=== PATIENT | female | born 1980 | race Two or more races ===

== ENCOUNTER 2017-03-16 09:09 | Outpatient (CLI) | payer OTHER ==
--- NOTE | 2017-03-16 09:42 | Non Stress Test Report ---
Non Stress Test Datetime Report Generated by CPN: 03/16/2017 09:42 INDICATION Indication for Study: Ordered by Provider MONITORING Monitor Explained: Monitor Explained; Test Explained; Patient Verbalized Understanding Time on Monitor: 03/16/2017 09:21 Time off Monitor: 03/16/2017 09:41 NST Duration: 20 NST INTERVENTIONS NST Interventions: None Physician Notified NST: Dr. Sexton BABY A: [id number] BABY A Movement : Present Contraction Frequency : none FHR Baseline : 140 Accelerations : 15X15 Decelerations : None Variability : Moderate 6-25bpm NST Review: Meets Criteria for Reactive NST NST Review and Verified By : Dilcia Rivera RN NST Results: Reactive NST REPORT Report Trigger: Send Report
== END 2017-03-16 09:45 | disposition home or self-care (01) ==
LOC: LC 09:09
PROVIDERS: ATTEND Student in an Organized Health Care Education/Training Program
PROC: 4A1HXCZ Monitoring of Products of Conception, Cardiac Rate, External Approach (ICD-10-PCS; principal; 2017-03-16)
DX: O09.523 Supervision of elderly multigravida, third trimester (principal); Z3A.37 37 weeks gestation of pregnancy
CPT/HCPCS: 59025

== ENCOUNTER 2017-03-27 09:56 | Outpatient (CLI) | payer OTHER ==
[2017-03-27 10:42] LABS: AMNISURE (ROM) NEGATIVE (NEGATIVE)
--- NOTE | 2017-03-27 11:05 | Non Stress Test Report ---
Non Stress Test Datetime Report Generated by CPN: 03/27/2017 11:05 DEMOGRAPHIC Test Number: 1 EGA NST: 39.0 EGA NST: 37.3 INDICATION Indication for Study: Ordered by Provider MONITORING Monitor Explained: Monitor Explained; Test Explained; Patient Verbalized Understanding Time on Monitor: 03/27/2017 10:10 Time off Monitor: 03/27/2017 10:57 NST Duration: 47 NST INTERVENTIONS NST Interventions: PO Hydration NST Interventions Other: popsicle Physician Notified NST: Ayala, CNM BABY A: [id number] BABY A Movement : Present Contraction Frequency : Irregular FHR Baseline : 140 Accelerations : 15X15 Decelerations : None Variability : Moderate 6-25bpm NST Review: Meets Criteria for Reactive NST NST Review and Verified By : MARCEL Anderson Results: Reactive NST REPORT Report Trigger: Send Report
== END 2017-03-27 11:00 | disposition home or self-care (01) ==
LOC: LC 09:56
PROVIDERS: ATTEND Obstetrics & Gynecology
PROC: 4A1HXCZ Monitoring of Products of Conception, Cardiac Rate, External Approach (ICD-10-PCS; principal; 2017-03-27)
DX: O47.1 False labor at or after 37 completed weeks of gestation (principal); O09.523 Supervision of elderly multigravida, third trimester; Z3A.39 39 weeks gestation of pregnancy
CPT/HCPCS: 59025; 84112

== ENCOUNTER 2017-03-27 19:32 | Inpatient (IN) | payer OTHER ==
[2017-03-27 20:02] LABS: AMNISURE (ROM) POSITIVE (NEGATIVE)
[2017-03-27 20:04] LABS: APPEARANCE,URINE SLIGHTLY-CLOUDY; BILIRUBIN,URINE NEGATIVE (NEGATIVE); GLUCOSE, URINE NEGATIVE (NEGATIVE); KETONES,URINE 20 mg/dL (NEGATIVE); LEUKOCYTE ESTERASE,URINE NEGATIVE (NEGATIVE); NITRITE,URINE NEGATIVE (NEGATIVE); PROTEIN,URINE NEGATIVE (NEGATIVE); UROBILINOGEN,URINE NEGATIVE mg/dL (<2.0)
[2017-03-27 20:21] LABS: URINE BARBITURATES SCREEN NEGATIVE; URINE METHADONE SCREEN NEGATIVE; URINE OPIATES LOW NEGATIVE; URINE PHENCYCLIDINE SCREEN NEGATIVE
[2017-03-27 20:44] LABS: ABSOLUTE LYMPHOCYTES (AUTO) 1.2 10^3/uL (0.5-4.7); ABSOLUTE MONOCYTES (AUTO) 0.5 10^3/uL (0.1-1.4); BASOPHILS % (AUTO) 0.3 % (0-2); EOSINOPHILS % (AUTO) 0.3 % (0-6); HEMATOCRIT 42.4 % (36.0-47.0); HEMOGLOBIN 14.3 g/dL (12.0-15.5); HGB HCT DIFFERENCE 0.5; LYMPHOCYTES % (AUTO) 15.4 % (13-45); MEAN CORPUSCULAR HEMOGLOBIN 28.8 pg (27.0-33.4); MEAN CORPUSCULAR HGB CONC 33.6 g/dL (32.0-36.0); MEAN CORPUSCULAR VOLUME 86 fl (80-97); RED BLOOD COUNT 4.95 10^6/uL (3.72-5.28); RED CELL DISTRIBUTION WIDTH 17.7 % (11.5-14.0); WHITE BLOOD COUNT 7.8 10^3/uL (4.0-10.5)
[2017-03-27] MEDS ORDERED: OXYTOCIN/NORMAL SALINE 20 UNIT/1,000 ML RTUINJ ONE (23:43)
[2017-03-27] MEDS ORDERED: OXYTOCIN/NORMAL SALINE 20 UNIT/1,000 ML RTUINJ IV PRN (23:47)
[2017-03-28] MEDS: RINGERS SOLUTION,LACTATED 1,000 ML IV PRN ×4 (00:14→23:11)
[2017-03-28] MEDS ORDERED: NALBUPHINE HCL INJ 10 MG/1 ML AMPULE INJ ONE (02:24)
[2017-03-28] MEDS ORDERED: PROMETHAZINE HCL INJ 25 MG/1 ML VIAL IV ONE (02:25)
[2017-03-28] MEDS ORDERED: NALBUPHINE HCL INJ 10 MG/1 ML AMPULE ONE (02:30)
[2017-03-28] MEDS ORDERED: PROMETHAZINE HCL INJ 25 MG/1 ML VIAL ONE ×2 (02:30→05:44)
[2017-03-28 05:53] LABS: ABSOLUTE LYMPHOCYTES (AUTO) 1.2 10^3/uL (0.5-4.7); ABSOLUTE MONOCYTES (AUTO) 0.5 10^3/uL (0.1-1.4); ABSOLUTE NEUT (AUTO) 8.9 10^3/uL (1.7-8.2); BASOPHILS % (AUTO) 0.1 % (0-2); EOSINOPHILS % (AUTO) 0.1 % (0-6); HEMATOCRIT 44.1 % (36.0-47.0); HEMOGLOBIN 15.1 g/dL (12.0-15.5); HGB HCT DIFFERENCE 1.2; MEAN CORPUSCULAR HEMOGLOBIN 28.9 pg (27.0-33.4); MEAN CORPUSCULAR HGB CONC 34.1 g/dL (32.0-36.0); MEAN CORPUSCULAR VOLUME 85 fl (80-97); MONOCYTES % (AUTO) 4.7 % (3-13); RED BLOOD COUNT 5.21 10^6/uL (3.72-5.28); RED CELL DISTRIBUTION WIDTH 17.9 % (11.5-14.0); SEGMENTED NEUTROPHILS % (AUTO) 84.1 % (42-78); WHITE BLOOD COUNT 10.6 10^3/uL (4.0-10.5)
[2017-03-28] MEDS ORDERED: MORPHINE SULFATE 10 MG/ML INJ ONE ×2 (05:53→20:08)
[2017-03-28 06:05] LABS: ALANINE AMINOTRANSFERASE 24 U/L (9-52); ALBUMIN 3.6 g/dL (3.5-5.0); ALKALINE PHOSPHATASE 234 U/L (38-126); ANION GAP 9 (5-19); ASPARTATE AMINO TRANSFERASE 20 U/L (14-36); BILIRUBIN,DIRECT 0.3 mg/dL (0.0-0.4); BILIRUBIN,TOTAL 0.4 mg/dL (0.2-1.3); BLOOD UREA NITROGEN 7 mg/dL (7-20); CALCIUM 9.5 mg/dL (8.4-10.2); CARBON DIOXIDE 19 mmol/L (22-30); CHLORIDE 104 mmol/L (98-107); GLUCOSE 96 mg/dL (75-110); LDH 384 U/L (313-618); POTASSIUM 4.3 mmol/L (3.6-5.0); SODIUM 131.9 mmol/L (137-145); TOTAL PROTEIN 6.4 g/dL (6.3-8.2); URIC ACID 5.9 mg/dL (2.5-7.0)
[2017-03-28] MEDS ORDERED: FENTANYL/BUPIVACAINE/NS/PF 200 MCG/100 ML RTUINJ EPI ONE ×2 (08:16→18:17)
[2017-03-28] MEDS ORDERED: MISOPROSTOL 0.2 MG TABLET ONE (08:16)
[2017-03-28] MEDS ORDERED: EPHEDRINE SULFATE INJ 50 MG/1 ML AMPULE ONE (08:16)
[2017-03-28] MEDS ORDERED: BUPIVACAINE HCL 0.25 % INJ/PF (2.5 MG/1 ML) 30 ML VIAL ONE (08:16)
[2017-03-28] MEDS ORDERED: LIDOCAINE 1% INJ-PF (10 MG/ML) 30 ML SDV ONE (08:16)
[2017-03-28] MEDS ORDERED: OXYTOCIN/NORMAL SALINE 0 UNIT/0 ML RTUINJ ONE (08:17)
--- NOTE | 2017-03-28 11:37 | L&D Progress Notes ---
PROGRESS NOTES Datetime Report Generated by CPN: 03/28/2017 11:37 PROGRESS NOTE Procedures: Intrauterine Pressure Catheter; Sterile Vag Exam; Amnio Infusion Plan: Continue Present Management Vital Signs : Reviewed; Within Normal Limits Comment: SVE with IUPC placement for amnioinfusion. Variable decelerations continue w ucs-will try to relieve variables with amnioinfusion. VAGINAL EXAM Dilatation: 2 Dilatation: 1 Effacement: 80 Station: -2 MEMBRANES Pooling: Positive Membranes: Ruptured Membranes: Ruptured FETUS A FHR - Baseline: 160 Decelerations: Variable : 39.0 Presentation: Vertex SIGNATURE SIGNATURE: [id number];[id number] SIGNATURE: [id number] SIGNATURE: [id number] Assignment: Kelly Love MD Signature: with User ID: [email or web address] : with User ID: [email or web address] : I personally evaluated and examined the patient in conjunction with the MLP and agree with the assessment, treatment plan and disposition.
[2017-03-28] MEDS ORDERED: ACETAMINOPHEN 325 MG TABLET PO ONE (13:46)
[2017-03-28] MEDS ORDERED: ACETAMINOPHEN 325 MG TABLET ONE (13:51)
[2017-03-28] MEDS ORDERED: CEFAZOLIN 2 GM/D5W RTU 0 GM/0 ML RTUPB IV ONE (15:25)
[2017-03-28] MEDS ORDERED: CITRIC ACID/SODIUM CITRATE ORAL SOLN 15 ML UDCUP ONE (15:25)
[2017-03-28] MEDS ORDERED: CEFAZOLIN INJ 1 GM VIAL ONE (15:25)
[2017-03-28] MEDS ORDERED: LIDOCAINE 2% INJ-PF (20 MG/ML) 10 ML AMPUL ONE (15:25)
[2017-03-28] MEDS ORDERED: CLINDAMYCIN 900 MG/D5W RTU 50 ML IV ONE (18:53)
[2017-03-28] MEDS ORDERED: GENTAMICIN SULFATE INJ 80 MG/2 ML VIAL ONE (18:53)
[2017-03-28] MEDS ORDERED: GENTAMICIN SULFATE INJ 80 MG/2 ML VIAL IV ONE (18:56)
[2017-03-28] MEDS ORDERED: AMPICILLIN SOD INJ 1 GM VIAL ONE (19:19)
--- NOTE | 2017-03-28 19:59 | L&D Progress Notes ---
PROGRESS NOTES Datetime Report Generated by CPN: 03/28/2017 19:58 PROGRESS NOTE Impression: Arrest of Dilatation/Descent Procedures: Sterile Vag Exam Comment: No dilation since IUPC inserted. FHR tachycardic. Maternal temp again slightly elevated. Will notify Dr Ivan of lack of cervical dilation. FETUS C SIGNATURE: [id number];[id number] Assignment: Kelly Love MD Signature: with User ID: [email or web address] : with User ID: [email or web address] : I personally evaluated and examined the patient in conjunction with the MLP and agree with the assessment, treatment plan and disposition.
[2017-03-28] MEDS ORDERED: OXYTOCIN/NORMAL SALINE 20 UNIT/1,000 ML RTUINJ ONE ×2 (20:07→21:26)
[2017-03-28] MEDS ORDERED: MIDAZOLAM 2 MG/2 ML INJ ONE (20:08)
[2017-03-28] MEDS ORDERED: BUPIVACAINE HCL 0.5 % INJ/PF 30 ML SDV ONE (20:08)
[2017-03-28] MEDS ORDERED: FENTANYL CITRATE INJ/PF 100 MCG/2 ML AMPUL ONE ×2 (20:08→21:41)
[2017-03-28] MEDS ORDERED: OXYTOCIN 10 UNIT/ML VIAL ONE (20:08)
[2017-03-28] MEDS ORDERED: ONDANSETRON HCL INJ/PF 4 MG/2 ML SDV ONE (20:08)
[2017-03-28] MEDS ORDERED: MEPERIDINE HCL/PF INJ 25 MG/1 ML DISP.SYRIN ONE (21:35)
[2017-03-28] MEDS ORDERED: CLINDAMYCIN PHOSPHATE 900 MG in DEXTROSE 5%-WATER 100 ML IV SCH (22:00)
--- NOTE | 2017-03-28 22:32 | OPERATIVE REPORT E ---
Operative Report NAME: BALTA CHIANG : 1980 AGE: 36Y DATE OF SURGERY: 03/28/2017 ROOM: LR200 PREOPERATIVE DIAGNOSES: 1. Intrauterine at 39+ weeks. 2. Failure to progress. 3. Chorioamnionitis. POSTOPERATIVE DIAGNOSES: 1. Intrauterine at 39+ weeks. 2. Failure to progress. 3. Chorioamnionitis. PROCEDURE: Low-transverse hysterotomy section with myomectomy. SURGEON: OLIVE RUGGIERO M.D. ANESTHESIA: Dr. Jones with epidural. FINDINGS: Male infant in cephalic presentation with Apgars of 9 and 9. Small fundal fibroid that sheared with exteriorization of the uterus. COMPLICATIONS: None. ESTIMATED BLOOD LOSS: 600 mL. SPECIMENS REMOVED: Placenta and the pedunculated fibroid.. PROCEDURE IN DETAIL: Patient was taken to the operating room, prepared and draped in a normal sterile fashion in a supine position with a leftward tilt. A transverse skin incision was made with a scalpel and carried through to the underlying layer of fascia. With the same scalpel, the fascia was excised in the midline and extended laterally with Delgado scissors. The fascia was dissected from the rectus muscle bluntly and the rectus muscle was divided. The peritoneal cavity was entered bluntly with good visualization of the bladder and the uterus. The bladder blade was inserted and the hysterotomy was nicked with the scalpel and extended laterally with the surgeon's finger fracture. The was then delivered atraumatically. Nose and mouth were suctioned with a suction bulb, cord was clamped and cut, and the was handed off to awaiting pediatricians. Cord blood was collected. Placenta was removed manually. The uterus was exteriorized and cleared of clots and debris. During the exteriorization of the uterus, the pedunculated fibroid on the left fundus of the uterus did have some shearing forces that caused it to start to shear off and it was bleeding. This was watched during the closure of the hysterotomy, which was closed with 0 Monocryl in a running, locked fashion. A second layer of the same suture was used to imbricate to ensure hemostasis. At this point we reinspected the pedunculated fibroid and found it to still be bleeding at the base. Therefore, the decision with notification of the patient that we would remove the remainder of the fibroid, as it was kind of hanging from a small pedicle at this point. This was done with gentle blunt dissection, peeling the fibroid away from the uterine serosa. The serosa was then made hemostatic with 2 interrupted [id number] sutures of 0 Monocryl. The uterus was then returned to the abdomen and the peritoneal cavity was cleared of clots and debris. The rectus muscle and peritoneum were reapproximated with 2 stitches of 2-0 chromic using a mattress stitch. The fascia was closed with 0 Vicryl. Subcutaneous layer was closed with plain catgut and the skin was closed with 4-0 Vicryl. The patient tolerated the procedure well. Sponge, lap, and needle counts were correct x2. The patient was taken to recovery in stable condition. DICTATING PHYSICIAN: OLIVE RUGGIERO M.D. [id number] PHY#: [id number] ID: [id number] JOB#: [id number] ACCT: [id number] cc:OLIVE RUGGIERO M.D. > MTDD
[2017-03-28] MEDS ORDERED: OXYCODONE-ACETAMINOPHEN 5-325 MG TABLET PO PRN (23:05)
[2017-03-28] MEDS ORDERED: MORPHINE SULFATE 10 MG/ML INJ IV PRN (23:05)
[2017-03-28] MEDS ORDERED: MEASLES,MUMPS&RUBELLA VACC/PF 0.5 ML VIAL SUBCUT PRN (23:05)
[2017-03-28] MEDS ORDERED: SIMETHICONE 80 MG TAB.CHEW PO PRN (23:05)
[2017-03-28] MEDS ORDERED: DIPH/PERTUSS(ACELL)/TETANUS VAC/PF 0.5 ML SYR (>=10YO) IM PRN (23:05)
[2017-03-28] MEDS ORDERED: ACETAMINOPHEN 100 ML IV PRN (23:05)
[2017-03-28] MEDS ORDERED: PROMETHAZINE HCL INJ 25 MG/1 ML VIAL IV PRN (23:05)
[2017-03-28] MEDS ORDERED: RINGERS SOLUTION,LACTATED 1,000 ML IV PRN (23:05)
[2017-03-28] MEDS ORDERED: ACETAMINOPHEN 325 MG TABLET PO PRN (23:05)
[2017-03-28] MEDS ORDERED: OXYTOCIN/NORMAL SALINE 20 UNIT/1,000 ML RTUINJ IV PRN (23:05)
[2017-03-28] MEDS: AMPICILLIN SOD INJ 1 GM VIAL IV SCH (23:17)
--- NOTE | 2017-03-29 00:12 | Delivery Summary ---
Del Sum A-C Datetime Report Generated by CPN: 03/29/2017 00:12 DELIVERY PERSONNEL DELIVERY PERSONNEL: [id number] Delivery Doctor:: Kelly Love MD Anesthesiologist:: Pedro Jones MD GOOD HUMOR VENDOR:: Omar Clay CRNA Labor and Delivery Nurse:: Adenike Jimenez RN Nursery Nurse:: Michelle Thompson RN Nursery Nurse:: Randi Hoyt RN Director Clinical Operations/COAGULANT DIPPER: [facility] Director Clinical Operations/COAGULANT DIPPER: [facility] [place] Additional Personnel: : Sreedhar Lim CNA MATERNAL INFORMATION Delivery Anesthesia: Epidural Medications After Delivery: Pitocin Drip 20 Units/1000ml NSS Maternal Complications: Other Other Maternal Complications: Arrest of Dilation Tachy LABOR SUMMARY EDC: 04/03/2017 00:00 No. Babies in Womb: 1 Attempted: No Labor Anesthesia: Epidural LABOR INFORMATION Onset of Labor: 03/27/2017 19:00 Group B Beta Strep: neg MEMBRANES Membranes Rupture Method: Spontaneous Rupture of Membranes: 03/27/2017 19:00 Length of Rupture (hr): 25.75 Amniotic Fluid Color: Clear Amniotic Fluid Amount: Small STAGES OF LABOR Stage 3 hr: 0 Stage 3 min: 1 Total Time in Labor hr: 25 Total Time in Labor min: 46 VAGINAL DELIVERY Episiotomy: None Laceration Extension: N/A Sponge Count Correct: N/A Sharps Count Correct: N/A CSECTION DELIVERY Primary Indication: Failure of Descent Secondary Indication: Nonreassuring Status CSection Urgency: Non-Scheduled CSection Incidence: Primary Labor: Labor Elective: Nonelective CSection Incision: Lower Uterine Transverse BABY A INFORMATION Delivery Date/Time: 03/28/2017 20:45 Method of Delivery: Born in Route : No : N/A Forceps: N/A Vacuum Extraction: N/A Shoulder Dystocia : No PRESENTATION/POSITION BABY A Presentation: Cephalic Cephalic Presentation: Vertex Breech Presentation: N/A PLACENTA INFORMATION BABY A Placenta Delivery Time : 03/28/2017 20:46 Placenta Method of Delivery: Manual Removal Placenta Status: Delivered SCORES BABY A Heart Rate 1 min: >100 bpm Resp Effort 1 min: Good Cry Reflex Irritability 1 min: Cough or Sneeze or Pulls Away Muscle Tone 1 min: Active Motion Color 1 min: Body Grenelefe, Extremities Blue Resuscitation Effort 1 min: Tactile Stimulation SCORE 1 MIN: 9 Heart Rate 5 min: >100 bpm Resp Effort 5 min: Good Cry Reflex Irritability 5 min: Cough or Sneeze or Pulls Away Muscle Tone 5 min: Active Motion Color 5 min: Body Grenelefe, Extremities Blue Resuscitation Effort 5 min: Tactile Stimulation SCORE 5 MIN: 9 INFORMATION BABY A Gestational Age at Delivery: 39.1 Gestational Status: Full Term- 39- 40.6 Weeks Infant Outcome : Liveborn Infant Condition : Stable Infant Sex: Male IDENTIFICATION BABY A Infant Verification Date/Time: 03/28/2017 20:51 ID Band Number: [id number] Mother's Name Verified: Yes RN Verifying : R Farhat, RNC Additional Verifying Personnel: R Raphael, COAGULANT DIPPER WEIGHT/LENGTH BABY A Infant Birthweight (gm): 3160 Weight (lb): 6 Weight (oz): 15 Length (in): 19.75 Length (cm): 50.17 CORD INFORMATION BABY A No. Cord Vessels: 3 Nuchal Cord : N/A Cord Blood Taken: Yes-For Eval (Mom's Blood Type - or O+) ASSESSMENT BABY A Infant Complications: None Physical Findings at Delivery: Within Normal Limits Respirations: Appears Normal Care By: Nic Thompson RN and MARCEL Aponte Transferred To: Nursery SIGNATURES : I personally evaluated and examined the patient in conjunction with the MLP and agree with the assessment, treatment plan and disposition.
--- NOTE | 2017-03-29 00:44 | Admission Physical ---
Datetime Report Generated by CPN: 03/29/2017 00:43 CURRENT ADMISSION Chief Complaint: Suspected Ruptured Membranes Indication for Induction: Other Indication for Induction- Other: SROM Admit Plan: Admit to Unit; Initiate Labor Induction Protocol ALLERGIES Medication Allergies: No Medication Allergies: No Known Drug Allergies (03/27/2017) Medication Allergies: No Known Drug Allergies (03/16/2017) Latex: Unknown OBSTETRICAL HISTORY EDC: 04/03/2017 00:00 : 1 Para: 0 Gestational Diabetes: No Rh Sensitization: No Incompetent Cervix: No BRITNI: No Infertility: No ART Treatment: No Uterine Anomaly: No IUGR: No Hx Previous C/S: No Macrosomia: No Hx Loss/Stillborn: No PIH: No Hx : No Placenta Previa/Abruption: No Depression/PP Depression: No PTL/PROM: No Post Hemorrhage: No Current Procedures: Ultrasound; NST Obstetrical History Comments: G1- current SEE RECORDS Alcohol: No Marijuana : No Cocaine: No Other Illicit Drugs: No Cigarettes: Never Smoker. [id number] MEDICAL HISTORY Diabetes: No Blood Transfusion: No Pulmonary Disease (Asthma, TB): No Breast Disease: No Hypertension: No Orchard Worker Surgery: No Heart Disease: No Hosp/Surgery: No Autoimmune Disorder: No Anesthetic Complications: No Kidney Disease: No Abnormal Pap Smear: No Neuro/Epilepsy: No Psychiatric Disorders: No Other Medical Diseases: No Hepatitis/Liver Disease: No Significant Family History: No Varicosities/Phlebitis: No Trauma/Violence : No Thyroid Dysfunction: No INFECTIOUS HISTORY Gonorrhea: No Genital Herpes: No Chlamydia: No Tuberculosis: No Syphilis: No Hepatitis: No HIV/AIDS Exposure: No Rash or Viral Illness: No HPV: No PHYSICAL EXAM General: Normal HEENT: Normal Neurologic: Normal Thyroid: Normal Heart: Normal Lungs: Normal Breast: Deferred Back: Normal Abdomen: Normal Genitourinary Exam: Normal Extremities: Normal DTRs: Normal Pelvic Type: Adequate Vital Signs: Reviewed VAGINAL EXAM Dilatation: 2 Dilatation: 1 Effacement: 80 Station: -2 MEMBRANES Pooling: Positive Membranes: Ruptured Membranes: Ruptured FETUS A EGA: 39.0 Monitoring: External US FHR- Baseline: 140 Variability: Minimal - Undetectable to <=5bpm Decelerations: None Presentation: Vertex PLANS FOR LABOR AND DELIVERY Labor and Delivery: None Pain Management: Natural Feeding Preference: Breast Benefit of Breast Feed Discussed: Yes Circumcision: Yes INFORMED CONSENT Signature: with User ID: [email or web address] : I personally evaluated and examined the patient in conjunction with the MLP and agree with the assessment, treatment plan and disposition. : I personally evaluated and examined the patient in conjunction with the MLP and agree with the assessment, treatment plan and disposition.
[2017-03-29] MEDS: OXYCODONE-ACETAMINOPHEN 5-325 MG TABLET PO PRN ×2 (01:08→21:23)
[2017-03-29] MEDS ORDERED: MORPHINE SULFATE 10 MG/ML INJ IV PRN (01:26)
[2017-03-29] MEDS: AMPICILLIN SOD INJ 1 GM VIAL IV SCH (01:59)
[2017-03-29] MEDS ORDERED: GENTAMICIN SULFATE 100 MG in DEXTROSE 5%-WATER 100.0 ML IV ONE (03:00)
[2017-03-29] MEDS: KETOROLAC TROMETHAMINE INJ/PF 30 MG/1 ML SDV IV SCH ×3 (05:31→21:12)
[2017-03-29 05:50] LABS: HEMATOCRIT 31.8 % (36.0-47.0); MEAN CORPUSCULAR HEMOGLOBIN 28.8 pg (27.0-33.4); MEAN CORPUSCULAR HGB CONC 33.4 g/dL (32.0-36.0); MEAN CORPUSCULAR VOLUME 86 fl (80-97); RED BLOOD COUNT 3.69 10^6/uL (3.72-5.28); RED CELL DISTRIBUTION WIDTH 17.6 % (11.5-14.0); WHITE BLOOD COUNT 13.1 10^3/uL (4.0-10.5)
[2017-03-29 05:56] LABS: HEMOGLOBIN 10.6 g/dL (12.0-15.5)
[2017-03-29] MEDS ORDERED: AMPICILLIN SOD INJ 1 GM VIAL IV SCH (09:00)
--- NOTE | 2017-03-29 09:49 | PDOC PROGRESS REPORT ---
Subjective-OB Subjective: Post Delivery Day: 1 36 year old. Denies any needs at this time, pain well controlled has not been up yet. Physical Exam (OB) Vital Signs: Temp Pulse Resp BP Pulse Ox 98.5 F 99 16 102/59 L 93 03/29/17 08:04 03/29/17 08:04 03/29/17 08:04 03/29/17 07:41 03/29/17 08:04 Intake & Output 03/28/17 03/29/17 03/30/17 06:59 06:59 06:59 Intake Total 400 900 Output Total 400 Balance 0 900 Weight 58 kg - Dressing Removed: No - op site Incision: Dressing - Lochia Lochia Amount: Scant < 10 ml Lochia Color: Rubra/Red - Abdomen Description: Tender, Soft Hernia Present: No Fundal Description: Firm, Midline Fundal Height: u/u - u/2 Objective-Diagnostic Laboratory: 03/29/17 05:06 03/28/17 05:20 03/29/17 05:06 WBC 13.1 H RBC 3.69 L Hgb 10.6 L D Hct 31.8 L MCV 86 MCH 28.8 MCHC 33.4 RDW 17.6 H Plt Count 136 L Assessment and Plan(PN) - Assessment and Plan (1) Status post primary low transverse section Is this a current diagnosis for this admission?: Yes Plan: routine pp care - Time Spent with Patient Time with patient: Less than 15 minutes Critical Time spent with patient: Less than 15 minutes Medications reviewed and adjusted accordingly: Yes - Disposition Anticipated Discharge: Home Within: within 24 hours
[2017-03-29] MEDS ORDERED: GENTAMICIN SULFATE INJ 80 MG/2 ML VIAL IV SCH (11:00)
[2017-03-29] MEDS: GENTAMICIN SULFATE 80 MG in DEXTROSE 5%-WATER 100 ML IV SCH ×2 (11:10→18:45)
[2017-03-29] MEDS: PRENATAL VITAMIN W-O CA NO5/FE FUMARATE/FA CAPSULE PO SCH (11:11)
[2017-03-29] MEDS: DOCUSATE SODIUM 100 MG CAPSULE PO SCH ×2 (11:11→18:06)
[2017-03-29] MEDS: AMPICILLIN SODIUM 1 GM in NORMAL SALINE 50 ML IV SCH ×3 (12:39→23:16)
[2017-03-29] MEDS: CLINDAMYCIN 900 MG/D5W RTU 50 ML IV SCH ×2 (14:22→21:16)
[2017-03-29 16:13] LABS: ADD HIVPANEL? NO; HIV (1 AND 2) ANTIBODY NEGATIVE (NEGATIVE)
[2017-03-29] MEDS: IBUPROFEN 800 MG TABLET PO SCH (23:21)
[2017-03-30] MEDS: CLINDAMYCIN 900 MG/D5W RTU 50 ML IV SCH (05:00)
[2017-03-30] MEDS: IBUPROFEN 800 MG TABLET PO SCH ×2 (05:01→11:53)
[2017-03-30] MEDS ORDERED: DIBUCAINE 1% OINTMENT 28 GM PR PRN (05:16)
[2017-03-30] MEDS ORDERED: GLYCERIN/WITCH HAZEL LEAF 1 EACH MED..PAD TP PRN (05:16)
[2017-03-30] MEDS: AMPICILLIN SODIUM 1 GM in NORMAL SALINE 50 ML IV SCH ×2 (06:02→11:54)
[2017-03-30] MEDS: PRENATAL VITAMIN W-O CA NO5/FE FUMARATE/FA CAPSULE PO SCH (09:19)
[2017-03-30] MEDS: DOCUSATE SODIUM 100 MG CAPSULE PO SCH (09:20)
[2017-03-30 11:59] VITALS: BP 124/73
--- NOTE | 2017-03-30 12:55 | PDOC DISCHARGE SUMMARY ---
Final Diagnosis Discharge Date: 03/30/17 - Final Diagnosis (1) Status post primary low transverse section Is this a current diagnosis for this admission?: Yes Discharge Data - Discharge Medication Home Medications: Ascorbate Calcium [Vitamin C] 500 mg PO DAILY 03/16/17 Ferrous Sulfate [Iron] 1 tab PO DAILY 03/16/17 Pnv No.122/Iron/Folic Acid [ Multi Tablet] 1 tab PO DAILY 03/16/17 Reason(s) for Admission: Onset of Labor Procedures: NST, Management of Obstetric Complications Intrapartum Procedure(s): : Low Cervical, Transverse - Diagnosis Test Laboratory: Temp Pulse Resp BP Pulse Ox 97.4 F 88 14 105/62 97 03/30/17 11:26 03/30/17 11:26 03/30/17 11:26 03/30/17 11:26 03/30/17 11:26 03/27/17 03/27/17 03/28/17 19:42 20:32 05:20 RBC 4.95 5.21 Hgb 14.3 15.1 Hct 42.4 44.1 Urine Opiates Screen NEGATIVE 03/29/17 05:06 RBC 3.69 L Hgb 10.6 L D Hct 31.8 L Urine Opiates Screen - Discharge information/Instructions Discharge Activity: Activity As Tolerated, No Lifting Over 10 Pounds, No Lifting /Push/Pulling, Pelvic Rest, No tub bath Discharge Diet: Regular Disposition: HOME, SELF-CARE Follow up with: [facility] in: 5, Days
== END 2017-03-30 16:00 | disposition home or self-care (01) | DRG 765 ==
LOC: LC 19:32 → LR 20:13 → 2S 03-29 00:42
PROVIDERS: ADMIT Obstetrics & Gynecology; ATTEND Obstetrics & Gynecology
PROC: 10D00Z1 Extraction of Products of Conception, Low, Open Approach (ICD-10-PCS; principal; 2017-03-27)
PROC: 0UB90ZZ Excision of Uterus, Open Approach (ICD-10-PCS; 2017-03-27)
PROC: 4A1H7CZ Monitoring of Products of Conception, Cardiac Rate, Via Natural or Artificial Opening (ICD-10-PCS; 2017-03-27)
PROC: 10H073Z Insertion of Monitoring Electrode into Products of Conception, Via Natural or Artificial Opening (ICD-10-PCS; 2017-03-27)
DX: O62.1 Secondary uterine inertia (principal); O41.1230 Chorioamnionitis, third trimester, not applicable or unspecified; O34.13 Maternal care for benign tumor of corpus uteri, third trimester; D25.9 Leiomyoma of uterus, unspecified; O76 Abnormality in fetal heart rate and rhythm complicating labor and delivery; Z3A.39 39 weeks gestation of pregnancy; Z37.0 Single live birth
CPT/HCPCS: 1961; 36415; 80053; 80307; 81005; 83615; 84112; 84550; 85025; 85027; 86592; 86701; 86850; 86900; 86901; 88305; 94799; J0290; J0690; J1580; J1885; J2175; J2250; J2270; J2300; J2405; J2550; J2590; J3010; J3490; J7120